=== PATIENT | female | born 2000 | race Caucasian/White ===

== ENCOUNTER 2024-08-21 12:42 | Emergency (ER) | payer SELFPAY ==
[2024-08-21] MEDS: traMADol 50 MG Tab PO ONE (14:04)
== END 2024-08-21 15:38 | disposition home or self-care (01) ==
LOC: MW.ED 12:42
DX: S93.601A Unspecified sprain of right foot, initial encounter (principal); F17.210 Nicotine dependence, cigarettes, uncomplicated; Z88.0 Allergy status to penicillin; X50.0XXA Overexertion from strenuous movement or load, initial encounter; Z75.8 Other problems related to medical facilities and other health care
CPT/HCPCS: 73620; 99283; A9270

== ENCOUNTER 2025-04-21 01:50 | Emergency (ER) | payer SELFPAY ==
[~2025-04-21 01:50] MED LIST: Diphtheria,Pertussis(Acell),Tetanus Vaccine 0.5 ML Syringe IM ONE
[2025-04-21] MEDS ORDERED: droPERidol 2.5 MG/ML SDV IM PRN (01:52)
[2025-04-21] MEDS: Lidocaine/Epineph/Tetracaine 3 ML Syringe TOP ONE (02:07)
[2025-04-21] MEDS: Lidocaine 1% with EPINEPHrine 1:100,000 10 ML MDV INJECT ONE (02:09)
[2025-04-21] MEDS: Nicotine 21 MG/24 Hr Patch TRDERM ONE (02:44)
== END 2025-04-21 03:49 ==
LOC: MW.ED 01:50
DX: S11.91XA Laceration without foreign body of unspecified part of neck, initial encounter (principal); S01.01XA Laceration without foreign body of scalp, initial encounter; Z88.0 Allergy status to penicillin; Z02.89 Encounter for other administrative examinations
CPT/HCPCS: 12002; 12014; 70450; 90471; 99285; A9270; 12001; 99284